=== PATIENT | male | born 1955 | race Caucasian/White ===

== ENCOUNTER → 2016-09-18 | Outpatient (CLI) | payer OTHER ==
[~2016-09-18] MED LIST: ALBUAER2 INH; ASPEC325 PO; ASPI81TA28 PO; FLUT0.0529; FLUT1INH INH; GLYB5TAB8 PO; HYDR-5688 PO; HYT1 PO; INSDGI SC; LORA10TA44 PO; LOSA50TA6 PO; LPT20 PO; MCR5 PO; METF850T PO; Novolog SQ; OMEP20TA PO; OXYSR10 PO; PARO30TA6 PO; REPA2TAB13 PO; SNG10 PO
[2016-09-18 12:58] LABS: BASO % 0.3 %; BASO ABS # 0.03 K/uL (0-0.2); COMPLETE YES; EOS % 2.1 %; HEMATOCRIT 37.6 % (42-52); IG% 1.2 %; MEAN CELL VOLUME 90.8 fL (80-100); MEAN CORPUSCULAR HEMOGLOBIN 30.7 pg (25-34); MEAN CORPUSCULAR HGB CONC 33.8 g/dl (32-36); MEAN PLATELET VOLUME 10.9 fL (7.4-10.4); MONO % 7.1 %; NEUT % 70.3 %; PLATELET COUNT 217 K/uL (130-400); RED BLOOD COUNT 4.14 M/uL (4.7-6.1); WHITE BLOOD COUNT 10.01 K/uL (4.8-10.8)
== END | disposition home or self-care (01) ==
LOC: C.LABPBG 08:29
PROVIDERS: ATTEND Family Medicine
DX: Z11.59 Encounter for screening for other viral diseases (principal); R53.83 Other fatigue

== ENCOUNTER → 2016-10-08 | Outpatient (CLI) | payer OTHER ==
[~2016-10-08] VITALS: Ht 167.6 cm; Wt 86.0 kg
[2016-10-08 13:25] VITALS: BP 156/82; PULSE 86; Ht 167.6 cm; Wt 86.0 kg
== END | disposition home or self-care (01) ==
LOC: C.NEUR 12:26
PROVIDERS: ATTEND Internal Medicine Pulmonary Disease
DX: G47.33 Obstructive sleep apnea (adult) (pediatric) (principal); G47.19 Other hypersomnia; R06.83 Snoring

== ENCOUNTER → 2016-12-19 | Outpatient (CLI) | payer OTHER ==
[~2016-12-19] MED LIST changes: +REPA2TAB12 PO; -REPA2TAB13 PO
[2016-12-19 13:51] LABS: BLOOD UREA NITROGEN 13 mg/dl (7-18); BUN/CREATININE RATIO 18.8 (10-20); CARBON DIOXIDE 29 mmol/L (21-32); CHLORIDE 103 mmol/L (98-107); CREATININE 0.67 mg/dl (0.60-1.40); GLUCOSE 197 mg/dl (70-99); POTASSIUM 4.6 mmol/L (3.5-5.1); SODIUM 139 mmol/L (136-145)
[2016-12-19 13:56] LABS: CALCIUM 9.9 mg/dl (8.5-10.1)
[2016-12-19 14:12] LABS: ESTIMATED AVERAGE GLUCOSE 200 mg/dl; HA1C FLAG Normal (Normal)
== END | disposition home or self-care (01) ==
LOC: C.LABPBG 07:51
PROVIDERS: ATTEND Family Medicine
DX: E11.9 Type 2 diabetes mellitus without complications (principal)

== ENCOUNTER → 2017-01-23 | Outpatient (CLI) | payer OTHER ==
--- NOTE | 2017-01-23 13:56 | DIAGNOSTIC IMAGING REPORT ---
RIGHT SHOULDER 3 VIEWS HISTORY: Right shoulder pain. COMPARISON: None. FINDINGS: There is no fracture or dislocation. 6 mm calcification at the distal supraspinatus tendon. The right clavicle is intact. No radiopaque foreign bodies. IMPRESSION: No fractures. Supraspinatus calcific tendinitis. Electronically signed by: Ortiz Anguiano M.D. 01/23/2017 1:54 PM Dictated Date/Time: 01/23/2017 1:53 PM
--- NOTE | 2017-01-23 14:12 | DIAGNOSTIC IMAGING REPORT ---
PA CHEST WITH ABDOMINAL SERIES CLINICAL HISTORY: Left lower quadrant abdominal pain. FINDINGS: A PA chest radiograph is compared to study dated 12/05/2014. The heart is top normal for projection. There is mild atherosclerotic calcification of the thoracic aorta. Chronic interstitial thickening is unchanged. There is mild bibasilar atelectasis. No airspace consolidation or large pleural effusion is identified. No pneumothorax is seen. The skeletal structures are osteopenic. The bony thorax is grossly intact. Degenerative change is noted in the thoracic spine. Supine and erect abdominal radiographs are obtained. No prior studies are available for comparison at the time of dictation. There is a nonobstructed abdominal bowel gas pattern noting moderate colonic fecal retention. No evidence of intraperitoneal free air is seen. There is no radiographic evidence of nephrolithiasis. Phleboliths are observed in the pelvis. There is mild lumbosacral spondylosis. The bony pelvis appears intact. IMPRESSION: 1. No active disease in the chest. 2. Moderate constipation. Electronically signed by: Dillon Neil M.D. 01/23/2017 2:10 PM Dictated Date/Time: 01/23/2017 2:09 PM
== END | disposition home or self-care (01) ==
LOC: C.RAD 12:56
PROVIDERS: ATTEND Family Medicine
DX: M75.31 Calcific tendinitis of right shoulder (principal); R10.32 Left lower quadrant pain

== ENCOUNTER → 2017-03-20 | Outpatient (CLI) | payer OTHER ==
[~2017-03-20] MED LIST changes: -REPA2TAB12 PO; +REPA2TAB13 PO
[2017-03-20 12:25] LABS: ESTIMATED AVERAGE GLUCOSE 200 mg/dl; HA1C FLAG Normal (Normal)
[2017-03-20 12:37] LABS: BLOOD UREA NITROGEN 13 mg/dl (7-18); BUN/CREATININE RATIO 19.6 (10-20); CALCIUM 9.9 mg/dl (8.5-10.1); CARBON DIOXIDE 27 mmol/L (21-32); CHLORIDE 104 mmol/L (98-107); CREATININE 0.68 mg/dl (0.60-1.40); GLUCOSE 182 mg/dl (70-99); POTASSIUM 4.4 mmol/L (3.5-5.1); SODIUM 139 mmol/L (136-145)
--- NOTE | 2017-03-27 10:22 | CODING QUERY MEDICAL NECESSITY ---
CQSUPPORTING DIAGNOSIS NEEDED A supporting diagnosis is required for the test/procedure performed on this patient in order for us to be reimbursed by the patient's insurance. Please provide a supporting diagnosis for the following test/procedure listed below next to the test name along with your signature. *If there is no additional diagnosis for this patient that would support the following test/procedure please document that below next to the test/procedure. Test(s)/Procedure(s) that require a supporting diagnosis: DOS 03/20/17 GLYCATED HEMOGLOBIN TEST Provider Signature: Date: Thank you [facility] Once completed, please kindly fax back to [phone] For questions please call [phone]
== END | disposition home or self-care (01) ==
LOC: C.LABPBG 08:57
PROVIDERS: ATTEND Family Medicine
DX: R10.9 Unspecified abdominal pain (principal); E11.9 Type 2 diabetes mellitus without complications

== ENCOUNTER → 2017-04-15 | Outpatient (CLI) | payer OTHER ==
[~2017-04-15] VITALS: Ht 167.6 cm; Wt 108.3 kg
[2017-04-15 15:04] VITALS: BP 133/84; PULSE 91; Ht 167.6 cm; Wt 108.3 kg
== END | disposition home or self-care (01) ==
LOC: C.NEUR 14:11
PROVIDERS: ATTEND Physician Assistant Medical
DX: G47.33 Obstructive sleep apnea (adult) (pediatric) (principal); R10.32 Left lower quadrant pain

== ENCOUNTER → 2017-10-14 | Outpatient (CLI) | payer OTHER ==
[~2017-10-14] VITALS: Ht 167.6 cm; Wt 113.4 kg
[~2017-10-14] MED LIST changes: -ASPEC325 PO; -GLYB5TAB8 PO; -HYDR-5688 PO; -LORA10TA44 PO; -MCR5 PO; -OXYSR10 PO; +REPA2TAB12 PO; -REPA2TAB13 PO
[2017-10-14 13:23] VITALS: BP 154/84; PULSE 91; Ht 167.6 cm; Wt 113.4 kg
== END | disposition home or self-care (01) ==
LOC: C.NEUR 12:34
PROVIDERS: ATTEND Internal Medicine Pulmonary Disease
DX: G47.33 Obstructive sleep apnea (adult) (pediatric) (principal); R53.83 Other fatigue; E66.9 Obesity, unspecified; Z88.6 Allergy status to analgesic agent; Z88.8 Allergy status to other drugs, medicaments and biological substances

== ENCOUNTER → 2017-11-04 | Outpatient (CLI) | payer OTHER ==
[2017-11-04 13:05] LABS: HEMOGLOBIN A1C 7.9 % (4.5-5.6)
[2017-11-04 13:14] LABS: ALT/SGPT 28 U/L (12-78); BLOOD UREA NITROGEN 13 mg/dl (7-18); CALCIUM 9.8 mg/dl (8.5-10.1); CARBON DIOXIDE 28 mmol/L (21-32); CHOLESTEROL 100 mg/dl (0-200); CREATININE 0.64 mg/dl (0.60-1.40); GLUCOSE 232 mg/dl (70-99); POTASSIUM 4.8 mmol/L (3.5-5.1); SODIUM 135 mmol/L (136-145)
[2017-11-04 13:17] LABS: LDL CHOLESTEROL CALCULATED 46 mg/dl
== END | disposition home or self-care (01) ==
LOC: C.LABPBG 09:28
PROVIDERS: ATTEND Family Medicine
DX: E78.00 Pure hypercholesterolemia, unspecified (principal); E11.9 Type 2 diabetes mellitus without complications; I10 Essential (primary) hypertension; Z79.4 Long term (current) use of insulin

== ENCOUNTER → 2017-12-17 | Outpatient (CLI) | payer OTHER ==
[2017-12-17 13:14] LABS: BASO % 0.1 %; BASO ABS # 0.01 K/uL (0-0.2); EOS % 3.3 %; EOS ABS # 0.26 K/uL (0-0.5); HEMATOCRIT 39.3 % (42-52); HEMOGLOBIN 12.9 g/dL (14.0-18.0); IG# 0.09 K/uL (0.00-0.02); LYMPH % 24.4 %; LYMPH ABS # 1.93 K/uL (1.2-3.4); MEAN CELL VOLUME 90.3 fL (80-100); MEAN CORPUSCULAR HEMOGLOBIN 29.7 pg (25-34); MEAN CORPUSCULAR HGB CONC 32.8 g/dl (32-36); MEAN PLATELET VOLUME 10.9 fL (7.4-10.4); MONO % 7.5 %; MONO ABS # 0.59 K/uL (0.11-0.59); NEUT % 63.6 %; NEUT ABS # 5.03 K/uL (1.4-6.5); PLATELET COUNT 189 K/uL (130-400); RED CELL DISTRIBUTION WIDTH CV 12.9 % (11.5-14.5); RED CELL DISTRIBUTION WIDTH SD 42.6 fL (36.4-46.3); WHITE BLOOD COUNT 7.91 K/uL (4.8-10.8)
[2017-12-17 13:36] LABS: ALBUMIN 3.6 gm/dl (3.4-5.0); ALT/SGPT 31 U/L (12-78); AST/SGOT 16 U/L (15-37); BLOOD UREA NITROGEN 11 mg/dl (7-18); CALCIUM 9.6 mg/dl (8.5-10.1); CARBON DIOXIDE 29 mmol/L (21-32); GLUCOSE 199 mg/dl (70-99); POTASSIUM 4.6 mmol/L (3.5-5.1); SODIUM 137 mmol/L (136-145)
[2017-12-17 13:38] LABS: ALKALINE PHOSPHATASE 88 U/L (45-117)
== END | disposition home or self-care (01) ==
LOC: C.LABPBG 09:52
PROVIDERS: ATTEND Family Medicine
DX: R53.83 Other fatigue (principal)

== ENCOUNTER → 2018-04-14 | Outpatient (CLI) | payer OTHER ==
[~2018-04-14] VITALS: Ht 167.6 cm; Wt 113.3 kg
[~2018-04-14] MED LIST changes: -HYT1 PO; +TERA1CAP38 PO
[2018-04-14 16:11] VITALS: BP 154/88; PULSE 92; Ht 167.6 cm; Wt 113.3 kg
== END | disposition home or self-care (01) ==
LOC: C.NEUR 13:45
PROVIDERS: ATTEND Physician Assistant Medical
DX: G47.33 Obstructive sleep apnea (adult) (pediatric) (principal); E66.9 Obesity, unspecified; R53.83 Other fatigue; Z88.8 Allergy status to other drugs, medicaments and biological substances; Z88.6 Allergy status to analgesic agent